=== PATIENT | male | born 1945 | race Caucasian/White ===

== ENCOUNTER → 2019-12-19 08:02 | Outpatient (CLI) | payer MEDICARE, SELFPAY ==
--- NOTE | 2019-12-19 08:06 | CT_ITS ---
PROCEDURE: CT LUNG SCREENING CLINICAL INDICATION: H/O TOBACCO USE 35+ pack-year smoking history, asymptomatic for lung cancer COMPARISON: No exams were available for comparison TECHNIQUE: The exam was performed on a GE Light Speed [address] scanner using 2.90 mGy CTDI. A low dose helical CT CHEST was performed on a multi-detector scanner. All CT scans at the facility use one or more dose reduction, viz: automated exposure control, ma/kV adjustment per patient size (including targeted exams where dose is matched to indication, i.e. head), or iterative reconstruction technique. The LDCT was performed in a facility that meets the criteria for the screening program. Data regarding this exam was submitted to ACR which is an approved registry. The order for this exam indicates that it came as a result of a lung cancer screening counseling shard decision-making visit that included all the elements required of such a visit including smoking cessation. The radiologist interpreting this exam meets the [facility] criteria for the LDCT lung cancer screening program. The exam is reported using the Lung-RADS classification scale and reported to the ACR registry. NOTE: This study was performed for the specific purposes of lung cancer screening and is not an alternative to diagnostic chest CT. RADIATION DOSE: CTDI vol(CT dose Index-volume) = 2.90mG DLP (Dose Length Product) = 96.64 mGcm Lung Rads Category: FINDINGS: COPD changes. There are scattered small nodular opacities in both lungs. Most of these are calcified. A noncalcified subpleural nodule is present in the right middle lobe anterior laterally at 6 mm. OTHER FINDINGS: Nonspecific coarse calcification noted in the spleen. Coronary artery calcifications and/or stents noted. Mild gynecomastia IMPRESSION: Lung rads category 3 probably benign regarding 6 mm nodule in the right middle lobe. Recommend six-month diagnostic CT follow-up with contrast Dictated by: Kole Maravilla MD 12/31/2019 10:51 Electronically signed by Kole Maravilla MD in [place] 12/31/2019 10:51
== END ==
PROVIDERS: PCP Internal Medicine Adolescent Medicine; Visit Provider Internal Medicine Adolescent Medicine
DX: Z87.891 Personal history of nicotine dependence (principal); Z12.2 Encounter for screening for malignant neoplasm of respiratory organs

== ENCOUNTER → 2019-12-25 07:55 | Outpatient (CLI) | payer MEDICARE, SELFPAY ==
--- NOTE | 2019-12-25 07:55 | CA_ITS ---
APPROVED REPORT EXAM: Comprehensive 2D, Doppler, and color-flow Echocardiogram Burglar Alarm Inspector: Sharon Dinh RDCS Ht: 5 ft 8 in Wt: 175lbs BSA: 1.93 BP: 163/48 mmHg Indications: CAD, HTN, HLP, PAD 2D Dimensions LVOT 1.59 cm (M/F) 1.5-2.5 M-Mode Dimensions RVDd 2.26 cm (0.9-2.6) LVDd 4.99 cm (3.5-5.7) LVDs 3.52 cm (3.5-5.7) IVSd 1.29 cm (0.6-1.1) PWd 1.18 cm (0.6-1.1) EF (Teich) 56.20% FS 29.50% EDV (Teich) 117.70 mL ESV (Teich) 51.60 mL LV Diastology E/A Ratio 1.05 Aortic Valve LVOT Max 148.00 (70-110 cm/s) LVOT VTI 39.55 cm Mitral Valve MV A Velocity 82.00 (40-130 cm/s) Left Ventricle Left atrium is mildly enlarged, left ventricle is normal size, mild concentric left ventricular hypertrophy, visually estimated ejection fraction 55% with no regional wall motion abnormality. Grade 1 diastolic dysfunction seen with tissue Doppler evidence of raise left atrial pressure. Right Ventricle Right atrium and right ventricular mildly enlarged with normal contractility. Aortic Valve Aortic valve is minimally thickened and fibrosed, there is no aortic stenosis, there is mild aortic insufficiency. Tricuspid Valve Tricuspid valve is grossly normal, there is mild tricuspid regurgitation, calculated right ventricular systolic pressure is 52 mmHg. Pulmonic Valve Pulmonic valve is poorly visualized. Great Vessels Aortic root is normal size. Pericardium No significant pericardial effusion noted. Conclusion 1. Mild biatrial enlargement, normal left ventricular size, mild concentric left ventricular hypertrophy, visually estimated ejection fraction 55% with no regional wall motion abnormality, grade 1 diastolic dysfunction seen with tissue Doppler evidence of raise left atrial pressure. 2. Mildly enlarged right ventricle with normal contractility. 3. Mild aortic, mild mitral and tricuspid regurgitation, calculated right ventricular systolic pressure is 52 mmHg. 4. No significant pericardial effusion noted. Electronically signed by : Josue Sue, 12/25/2019 12:10:23
--- NOTE | 2019-12-25 07:55 | CA_ITS ---
APPROVED REPORT Bindery Supervisor: KIRK Laterality: Bilateral Study Quality: Excellent Indications: bruit Doppler Spectral Velocity Analysis dICA (R) 123.80/24.80 cm/s dICA (L) 117.60/25.60 cm/s Aj (R) 97.30/16.80 cm/s Aj (L) 116.10/25.50 cm/s pICA (R) 137.90/26.20 cm/s pICA (L) 131.00/26.00 cm/s dCCA (R) 120.00/22.60 cm/s dCCA (L) 202.70/33.20 cm/s pCCA (R) 118.90/17.40 cm/s pCCA (L) 133.80/17.80 cm/s Vert (R) 93.70/16.00 cm/s Vert (L) 38.00/12.50 cm/s ICA/CCA 1.20 ICA/CCA 0.70 Conclusion Duplex evaluation demonstrates stenosis of the right proximal internal carotid artery <20% with PSV <140 cm/sec, EDV <100 cm/sec, and IC/CC Ratio <4.0. Duplex evaluation demonstrates stenosis of the left proximal internal carotid artery <20% with PSV <140 cm/sec, EDV <100 cm/sec, and IC/CC Ratio <4.0. Antegrade flow seen bilateral vertebral arteries. Electronically signed by : Kole Maravilla MD 12/26/2019 16:40:11
== END ==
PROVIDERS: PCP Internal Medicine Adolescent Medicine; Visit Provider Internal Medicine Cardiovascular Disease
DX: E78.5 Hyperlipidemia, unspecified (principal); I10 Essential (primary) hypertension; I25.10 Atherosclerotic heart disease of native coronary artery without angina pectoris; I73.9 Peripheral vascular disease, unspecified; I77.9 Disorder of arteries and arterioles, unspecified; R09.89 Other specified symptoms and signs involving the circulatory and respiratory systems
CPT/HCPCS: 93306; 93880

== ENCOUNTER → 2020-04-13 08:07 | Outpatient (CLI) | payer MEDICARE, SELFPAY ==
[2020-04-13 08:45] LABS: Basophils % 0.3 % (0.1-2.0); Eosinophils # 0.3 K/mm3 (0.0-0.4); Eosinophils % 3.1 % (0.1-12.0); Hematocrit 43.5 % (42.0-52.0); Hemoglobin 14.5 g/dL (14.1-18.0); Lymphocytes # 1.7 K/mm3 (0.7-4.5); Lymphocytes % 17.8 % (10-50); Mean Corpuscular HGB Conc 33.4 g/dL (31.8-35.4); Mean Corpuscular Hemoglobin 30.6 pg (27.0-31.2); Mean Corpuscular Volume 91.8 fl (80-94); Mean Platelet Volume 9.3 fl (7.4-10.4); Monocytes # 0.6 K/mm3 (0.1-1.0); Monocytes % 5.8 % (1.7-9.3); Platelet Count 247 K/mm3 (142-424); Red Blood Count 4.74 M/mm3 (4.60-6.20); Red Cell Distribution Width 13.8 % (11.5-17.5); White Blood Count 9.6 K/mm3 (4.8-10.8)
[2020-04-13 12:30] LABS: Chloride 108 mmol/L (98-107); Potassium 4.8 mmoL/L (3.5-5.1); Sodium 141 mmol/L (136-145)
[2020-04-13 12:32] LABS: Alanine Aminotransferase 22 U/L (12-78); Albumin Level 3.8 g/dl (3.5-5.0); Albumin/Globulin Ratio 1.5 (1.1-1.8); Alkaline Phosphatase 71 U/L (38-126); Anion Gap 12.8 mEq/L (5-15); Aspartate Amino Transferase 28 U/L (17-59); Bilirubin,Total 0.4 mg/dl (0.2-1.3); Blood Urea Nitrogen 20 mg/dl (9-20); Carbon Dioxide 25 mmol/L (22.0-30.0); Estimated Glomerular Filt Rate 73 ml/min (>60); GFR (African American) 88 ML/MIN (>60); Globulin 2.5 g/dL (1.3-3.2); Total Protein,Serum 6.3 g/dl (6.3-8.2)
[2020-04-13 12:33] LABS: Calcium 9.1 mg/dl (8.4-10.2); Chol/HDL Ratio 3.3 (1-3.5); Cholesterol 117 mg/dl (140-200); Glucose 110 mg/dl (74-100); HDL Cholesterol 36 mg/dl (40-60); Triglycerides 102 mg/dl (30-150); VLDL Cholesterol 20 mg/dL (0-40)
[2020-04-13 12:44] LABS: Direct LDL Cholesterol 66.53 mg/dL (100-129)
== END ==
PROVIDERS: Visit Provider Internal Medicine Adolescent Medicine
DX: I25.10 Atherosclerotic heart disease of native coronary artery without angina pectoris (principal)
CPT/HCPCS: 36415; 80053; 80061; 85025

== ENCOUNTER → 2020-07-29 13:35 | Outpatient (CLI) | payer MEDICARE, SELFPAY ==
--- NOTE | 2020-07-29 13:48 | CT_ITS ---
PROCEDURE: CT CHEST W CON CLINCAL INDICATION: lung nodule, follow up 75ml iso 370 ldls, 12/19/19 COMPARISON: CT CT LUNG SCREENING from 12/19/2019 TECHNIQUE: IV Contrast: 75ml Isovue 370 Axial images obtained with sagittal and coronal reformats. All CT scans at the facility use one or more dose reduction, viz: automated exposure control, ma/kV adjustment per patient size (including targeted exams where dose is matched to indication, i.e. head), or iterative reconstruction technique. FINDINGS: HEART AND MEDIASTINAL STRUCTURES: No mediastinal or hilar mass or adenopathy. Atheromatous changes are present involving the aorta with scattered soft plaque in the aortic arch and descending thoracic aorta with some ulceration noted. LUNGS AND PLEURAL SPACES: 4 mm noncalcified nodule right upper lobe unchanged. COPD. Five mm subpleural nodule right middle lobe unchanged. There are small nodular opacities in the right lower lobe posteriorly which are unchanged. Calcified granuloma right lower lobe. Small fissural nodule inferiorly on the right at 4 mm unchanged calcified granuloma left upper lobe. There is some minimal nodularity in the major fissure on the left. There are 2 nodular opacities in the left lung base laterally at 3 mm each unchanged. No new suspicious nodules are evident. BONY STRUCTURES: There are degenerative changes in the thoracic spine. UPPER ABDOMEN: There is a 3.8 cm hypodense lesion in the spleen posteriorly with central coarse calcifications. ADDITIONAL FINDINGS: Gynecomastia IMPRESSION: 1. Stable CT appearance of the chest with no change in the small bilateral pulmonary nodules. Suggest annual follow-up with LD CT 2. 4 cm splenic lesion with central calcification. This could be due to a prior splenic hemorrhage or hemangioma with central calcification. Consider six-month CT follow-up without and with contrast for confirmation of stability Dictated by: Kole Maravilla MD 07/30/2020 11:48 Kole Maravilla MD in [place] 07/30/2020 11:48
[2020-07-29 14:06] LABS: Blood Urea Nitrogen 28 mg/dl (9-20); Estimated Glomerular Filt Rate 50 ml/min (>60); GFR (African American) 60 ML/MIN (>60)
== END ==
PROVIDERS: PCP Internal Medicine Adolescent Medicine; Visit Provider Internal Medicine Adolescent Medicine
DX: R91.1 Solitary pulmonary nodule (principal)
CPT/HCPCS: 36415; 71260; 82565; 84520; Q9967

== ENCOUNTER → 2020-10-12 08:26 | Outpatient (CLI) | payer MEDICARE, SELFPAY ==
[2020-10-12 09:10] LABS: Blood Urea Nitrogen 17 mg/dl (9-20); Estimated Glomerular Filt Rate 65 ml/min (>60); GFR (African American) 79 ML/MIN (>60)
== END ==
PROVIDERS: Visit Provider Internal Medicine Adolescent Medicine
DX: D73.89 Other diseases of spleen (principal)
CPT/HCPCS: 36415; 82565; 84520

== ENCOUNTER → 2020-10-18 10:03 | Outpatient (CLI) | payer MEDICARE, SELFPAY ==
--- NOTE | 2020-10-18 10:08 | CT_ITS ---
PROCEDURE: CT ABDOMEN PELVIS W CON CLINICAL INDICATION: SPLENIC LESION COMPARISON: CT CT LUNG SCREENING from 12/19/[address] CHEST W CON from 07/29/2020 TECHNIQUE: IV Contrast: 75ML Isovue 370 Oral Contrast None Axial images obtained with sagittal and coronal reformats. All CT scans at the facility use one or more dose reduction, viz: automated exposure control, ma/kV adjustment per patient size (including targeted exams where dose is matched to indication, i.e. head), or iterative reconstruction technique. FINDINGS: LOWER THORAX: Minor bibasal atelectasis is noted. There is minor tree-in-bud appearance noted in the right lower lobe, may represent changes secondary to minor infection/inflammation. Calcified granuloma in the right lower lobe. Trace pericardial effusion. ABDOMEN & PELVIS: Focal hypodense lesion is noted in the segment 5/6 of the liver measuring approximately 1.2 centimeters. No other focal liver lesions are noted. The gallbladder is surgically absent. No intra or extrahepatic biliary dilation. The CBD is normal. Focal hypodense lesion in the spleen is again noted measuring 3.6 times 2.7 centimeters, demonstrates calcification. This demonstrates no significant interval change compared to prior study of July 29, 2020. No other focal splenic lesions are noted. On the delayed phase images, no evidence of internal enhancement is noted. Focal hypodense lesion is noted in the right kidney measuring 2.2 centimeters. Otherwise the adrenal glands, kidneys and pancreas are unremarkable. Moderate fecal retention of the large bowel is noted. No focal distension, adjacent inflammatory changes are focal wall thickening. Few colonic diverticula are noted without evidence of diverticulitis. The appendix is normal. Extensive atherosclerotic vascular calcification of the abdominal aorta and its branches. Right renal artery stent is noted. No significant mesenteric or retroperitoneal adenopathy. IMPRESSION: Focal hypodense lesion in the spleen measuring 3.6 x 2.7 centimeters, demonstrates internal calcification. There is no significant interval change compared to prior study. The differential diagnosis would include prior hematoma, sequela of prior trauma hemangioma and lymphangiomas. Focal hypodense lesion in the segment 5/6 of the liver measuring 1.2 centimeters. This is incompletely characterized on the current study. The differential diagnosis would include hemangioma, cysts but neoplastic process cannot be completely excluded. MRI of the liver without and with contrast should be considered for further evaluation. Colonic diverticula without evidence of diverticulitis. Extensive atherosclerotic vascular calcification. Dictated by: Monique Myles 10/18/2020 12:07 Monique Myles in [place] 10/18/2020 12:07
== END ==
PROVIDERS: PCP Internal Medicine Adolescent Medicine; Visit Provider Internal Medicine Adolescent Medicine
DX: D73.89 Other diseases of spleen (principal)
CPT/HCPCS: 74177; Q9967

== ENCOUNTER → 2020-10-21 07:43 | Outpatient (CLI) | payer MEDICARE, SELFPAY ==
--- NOTE | 2020-10-21 07:44 | CA_ITS ---
APPROVED REPORT Mop Machine Operator: Emily Delarosa RVT Laterality: Bilateral Study Quality: Good Indications: PAD Risk Factors History of Lower Extremity PAD: Hypertension Hyperlipidemia Smoking Surgery/Intervention Stent : prior aortic bypass VELOCITY AND DOPPLER WAVEFORM ANALYSIS RIGHT cm/sec Waveform Severity ROBOTICS TECHNICIAN 189.3/ Monophasic Mild < 50% PFA 46.2/ Monophasic Mild Plaque Prox SFA 25.8/ Monophasic Mild Plaque Mid SFA 23.1/ Monophasic Mild Plaque Dis SFA 8.5/ Monophasic Mild Plaque POP 28.5/ Monophasic Post Tibial 32.4/ Monophasic Ant Tib/Dors Ped 13.7/ Monophasic Peroneal 31.4/ Monophasic LEFT cm/sec Waveform Severity ROBOTICS TECHNICIAN 113.7/ Biphasic PFA 156.0/ Biphasic Mild < 50% Prox SFA 105.3/ Biphasic Mild Plaque Mid SFA 55.9/ Biphasic Mild Plaque Dis SFA 80.9/ Biphasic Mild Plaque POP 35.1/ Biphasic Post Tibial 47.8/ Biphasic Ant Tib/Dors Ped 45.3/ Biphasic Peroneal 44.8/ Biphasic Findings Study suggests less than 50% stenosis of the right ROBOTICS TECHNICIAN and the left profunda. There is mild plaque seen in the bilateral femoral arteries. Conclusion Study suggests less than 50% stenosis of the right ROBOTICS TECHNICIAN and the left profunda. There is mild plaque seen in the bilateral femoral arteries. Electronically signed by : Monique Myles, 10/21/2020 15:15:23
--- NOTE | 2020-10-21 07:44 | CA_ITS ---
APPROVED REPORT Applications Scientist: Emily Delarosa RVT Study Quality: Good Indications: HTN Risk Factors PAD Hypertension Hyperlipidemia Smoking Surgery/Intervention Renal Artery Stent : right Renal Artery Doppler Proximal (R) 248.6/ cm/sec Mid (R) 303.4/ cm/sec Distal (R) 186.4/ cm/sec Renal Aorta Ratio (R) 3.22 Segmental A. (R) 37.2/8.5 cm/sec RI: 0.77 Segmental A. Sup (R) 34.9/6.2 cm/sec Segmental A. Mid (R) 37.2/8.5 cm/sec Segmental A. Inf (R) 34.9/11.6 cm/sec Origin (L) 273.7/ cm/sec Proximal (L) 265.2/ cm/sec Mid (L) 203.7/ cm/sec Distal (L) 192.5/ cm/sec Renal Aorta Ratio (L) 2.91 Segmental A. (L) 65.2/17.7 cm/sec RI: 0.72 Segmental A. Sup (L) 58.4/13.6 cm/sec Segmental A. Mid (L) 65.2/17.7 cm/sec Segmental A. Inf (L) 31.3/12.2 cm/sec Renal Measurements Kidney Size (R) 9.6x6.6 cm Cortical Thickness (R) 1.5 cm Kidney Size (L) 13.2x8.6 cm Cortical Thickness (L) 2.0 cm Findings Study suggests greater than 60% stenosis of the bilateral renal arteries. 2.6 X 2.4cm cyst seen lower pole of right kidney. Conclusion Study suggests greater than 60% stenosis of the bilateral renal arteries. 2.6 X 2.4cm cyst seen lower pole of right kidney. Electronically signed by : Monique Myles, 10/21/2020 15:20:36
--- NOTE | 2020-10-21 07:44 | CA_ITS ---
APPROVED REPORT Mining Teacher: Emily Delarosa RVT Laterality: Bilateral Study Quality: Good Indications: ERIN Risk Factors Hypertension: Hyperlipidemia Smoking Doppler Spectral Velocity Analysis ECA (R) 257.70/18.10 cm/s ECA (L) 182.20/11.80 cm/s dICA (R) 108.20/30.60 cm/s dICA (L) 109.80/28.90 cm/s Aj (R) 110.50/23.50 cm/s Aj (L) 116.40/31.70 cm/s pICA (R) 104.50/20.90 cm/s pICA (L) 142.30/34.10 cm/s dCCA (R) 66.60/15.70 cm/s dCCA (L) 123.30/30.80 cm/s pCCA (R) 61.40/12.70 cm/s pCCA (L) 90.50/22.20 cm/s Vert (R) 80.00/16.50 cm/s Vert (L) 41.20/13.50 cm/s ICA/CCA 1.66 ICA/CCA 1.15 Findings Study suggests less than 20% stenosis of the right internal cartoid artery.Non calcified plaques are noted at the bilateral carotid bulbs. Study suggests 20-49% stenosis of the left internal cartoid artery. Antegrade flow seen bilateral vertebral arteries. Conclusion Non calcified plaques noted at bilateral carotid bulbs. Study suggests less than 20% stenosis of the right internal cartoid artery. Study suggests 20-49% stenosis of the left internal cartoid artery. Antegrade flow seen bilateral vertebral arteries. Electronically signed by : Monique Myles, 10/21/2020 15:19:18
== END ==
PROVIDERS: PCP Internal Medicine Adolescent Medicine; Visit Provider Internal Medicine Cardiovascular Disease
DX: E78.2 Mixed hyperlipidemia (principal); I10 Essential (primary) hypertension; I25.10 Atherosclerotic heart disease of native coronary artery without angina pectoris; I65.23 Occlusion and stenosis of bilateral carotid arteries; I73.9 Peripheral vascular disease, unspecified; I77.9 Disorder of arteries and arterioles, unspecified
CPT/HCPCS: 93880; 93925; 93976

== ENCOUNTER → 2020-11-01 11:54 | Outpatient (CLI) | payer MEDICARE, SELFPAY ==
[2020-11-01 13:02] LABS: Basophils # 0.1 K/mm3 (0-0.2); Basophils % 0.5 % (0.1-2.0); Eosinophils # 0.2 K/mm3 (0.0-0.4); Eosinophils % 1.9 % (0.1-12.0); Hematocrit 44.3 % (42.0-52.0); Hemoglobin 14.7 g/dL (14.1-18.0); Lymphocytes # 1.7 K/mm3 (0.7-4.5); Lymphocytes % 15.9 % (10-50); Mean Corpuscular HGB Conc 33.2 g/dL (31.8-35.4); Mean Corpuscular Hemoglobin 29.5 pg (27.0-31.2); Mean Corpuscular Volume 88.8 fl (80-94); Mean Platelet Volume 9.3 fl (7.4-10.4); Monocytes # 0.5 K/mm3 (0.1-1.0); Monocytes % 4.7 % (1.7-9.3); Platelet Count 249 K/mm3 (142-424); Red Blood Count 4.99 M/mm3 (4.60-6.20); Red Cell Distribution Width 13.9 % (11.5-17.5); White Blood Count 10.4 K/mm3 (4.8-10.8)
[2020-11-01 13:29] LABS: Chloride 105 mmol/L (98-107); Sodium 139 mmol/L (136-145)
[2020-11-01 13:30] LABS: Potassium 4.2 mmoL/L (3.5-5.1)
[2020-11-01 13:33] LABS: Anion Gap 11.2 mEq/L (5-15); Blood Urea Nitrogen 25 mg/dl (9-20); Calcium 9.8 mg/dl (8.4-10.2); Carbon Dioxide 27 mmol/L (22.0-30.0); Estimated Glomerular Filt Rate 59 ml/min (>60); GFR (African American) 72 ML/MIN (>60); Glucose 108 mg/dl (74-100)
== END ==
PROVIDERS: PCP Internal Medicine Adolescent Medicine; Visit Provider Urology
DX: E78.5 Hyperlipidemia, unspecified (principal); I10 Essential (primary) hypertension; I25.10 Atherosclerotic heart disease of native coronary artery without angina pectoris; I70.1 Atherosclerosis of renal artery; I73.9 Peripheral vascular disease, unspecified; I77.9 Disorder of arteries and arterioles, unspecified; Z01.818 Encounter for other preprocedural examination; Z11.52 Encounter for screening for COVID-19
CPT/HCPCS: 36415; 80048; 85025; U0003

== ENCOUNTER 2020-11-02 08:47 | Day surgery (SDC) | payer MEDICARE, SELFPAY ==
[2020-11-02] VITALS (15 sets, daily range): BP systolic 145–175; BP diastolic 63–78; PULSE 51–80; RESP 12–20; O2SAT 93–99; BMI 27.0
--- NOTE | 2020-11-02 07:18 | IR_ITS ---
APPROVED REPORT Patient Location: Outpatient PROCEDURES Right femoral arterial access Catheter placed in the abdominal aorta Abdominal aortography Repositioning of the catheter in the abdominal aorta Bilateral iliofemoral runoff Bilateral selective renal angiogram INDICATION Known peripheral artery disease, Fiona claudication class III, History of aortobifem surgery, Known renal artery stenosis Informed consent was obtained prior to the procedure. COMPLICATIONS None Estimated Blood Loss: Less than 10 ml TECHNIQUE 1% lidocaine used anesthetize right groin the right femoral artery was accessed via the Salinger technique and a 4 Portuguese sheath was placed in the right femoral artery. Pigtail catheter was advanced into the distal abdominal aorta or distal abdominal aortography was performed. The catheter was then repositioned and bilateral iliofemoral runoff was performed. The JR4 catheter was used to cannulate each renal artery and perform angiography at the end of the procedure the patient transferred to postop holding her stable condition for sheath removal ANGIOGRAPHIC RESULTS The left renal artery singular and has an ostial proximal smooth 20% stenosis The right renal artery singular and has a stent in the ostial proximal segment which has 30% concentric in-stent restenosis. The distal abdominal aorta is occluded Both limbs of the aortobifem graft are widely patent and make their anastomosis into the bilateral femoral arteries with wide patency. The bilateral profunda femoris arteries are normal. The bilateral superficial femoral arteries are proximally subtotally occluded and reconstituted Isael's canal via collaterals from the profunda femoris. Both popliteal arteries are patent and provide three-vessel runoff below the knee in a slow fashion IMPRESSION Peripheral artery disease as described above Patent aortobifem graft Subtotal occlusion throughout the bilateral superficial femoral arteries with good profunda femoris collateralization Mild to moderate renal artery stenosis as described above PLAN 1. I strongly advocate for medical management. Patient needs to get on an exercise program which will improve the collateral formation through the profunda femoris. In this patient has limb threatening ischemia or poorly healing ulcers I would avoid revascularizing the SFAs at all cost. Revascularizing the SFAs would be temporary and would almost certainly restenosis reocclude. Patient would have a much better short and long-term outcome with exercise program to improve collateralization 2. LDL less than 55 3. Evaluation of ischemic heart disease 4. Xarelto 2.5 twice daily plus aspirin 81 mg daily Electronically signed by : Roman Ortega, 11/09/2020 11:08:42
== END 2020-11-02 14:01 | disposition home or self-care (01) ==
PROVIDERS: PCP Internal Medicine Adolescent Medicine; Visit Provider Internal Medicine
DX: E78.5 Hyperlipidemia, unspecified (principal); I10 Essential (primary) hypertension; I25.10 Atherosclerotic heart disease of native coronary artery without angina pectoris; I70.1 Atherosclerosis of renal artery; I70.213 Atherosclerosis of native arteries of extremities with intermittent claudication, bilateral legs; I77.9 Disorder of arteries and arterioles, unspecified; T82.858A Stenosis of other vascular prosthetic devices, implants and grafts, initial encounter; Z79.899 Other long term (current) drug therapy
CPT/HCPCS: 36247; 36252; 75716; 99152; 99153; C1725; C1769; J1644; Q9967

== ENCOUNTER → 2021-11-07 14:06 | Outpatient (CLI) | payer MEDICARE, SELFPAY ==
--- NOTE | 2021-11-07 14:07 | CA_ITS ---
FINAL REPORT TECHNIQUE: Color Doppler, duplex Doppler and milner scale sonography of the bilateral neck arterial vasculature was performed. Velocities were measured in the carotid arteries. Stenosis evaluation based on the validated velocity criteria. CLINICAL HISTORY: ERIN, HTN, hyperlipidemia FINDINGS: The peak systolic velocity of the right common carotid artery is 70 cm/s. The peak systolic velocity of the right internal carotid artery is 114 cm/s and end diastolic velocity 20 cm/s. The ICA/CCA ratio is 1.6. A mild amount of plaque is present. The right external carotid artery is patent. The right vertebral artery is patent with antegrade flow. The peak systolic velocity of the left common carotid artery is 121 cm/s. The peak systolic velocity of the left internal carotid artery is 203 cm/s and end diastolic velocity 27 cm/s. The ICA/CCA ratio is 1.7. A mild amount of plaque is present. The left external carotid artery is patent.The left vertebral artery is patent with antegrade flow. IMPRESSION: Less than 50% right carotid stenosis. 50-69% left carotid stenosis. Bilateral patent vertebral arteries with antegrade flow. If indicated, CTA or MRA could further evaluate. Reviewed, Interpreted and Dictated by Raymond Barrera III, MD Transcribed by Neha Ramires Authenticated by Raymond Barrera III, MD on 11/07/2021 03:18:16 PM [facility]
== END ==
PROVIDERS: PCP Internal Medicine Adolescent Medicine; Visit Provider Internal Medicine Cardiovascular Disease
DX: I65.23 Occlusion and stenosis of bilateral carotid arteries
CPT/HCPCS: 93880

== ENCOUNTER → 2021-11-15 15:51 | Outpatient (CLI) | payer MEDICARE, SELFPAY ==
[2021-11-15 16:57] LABS: Blood Urea Nitrogen 32 mg/dl (9-20); Estimated Glomerular Filt Rate 49 ml/min (>60); GFR (African American) 60 ML/MIN (>60)
== END ==
PROVIDERS: Internal Medicine; PCP Internal Medicine Adolescent Medicine
DX: Z01.812 Encounter for preprocedural laboratory examination (principal)
CPT/HCPCS: 36415; 82565; 84520

== ENCOUNTER → 2021-11-16 13:03 | Outpatient (CLI) | payer MEDICARE, SELFPAY ==
--- NOTE | 2021-11-16 13:03 | CT_ITS ---
FINAL REPORT CLINICAL HISTORY: worsening ERIN FINDINGS: Thin section axial CT with IV contrast supplemented with multiplanar reconstruction under CT angiogram protocol. This study was performed with techniques to keep radiation doses as low as reasonably achievable (ALARA). Individualized dose reduction techniques using automated exposure control or adjustment of mA and/or kV according to the patient''s size were employed. NASCET criteria was utilized during interpretation. There are extensive facet hypertrophic changes throughout the cervical spine. Aortic arch: Arch shows no significant narrowing. Great vessel origins are widely patent. Right carotid: There is 50% stenosis at the origin of the right carotid on image 43 of series 601. Left carotid: There is 60% stenosis at the origin of the left carotid with associated calcification. Vertebral: Left vertebral artery is dominant. No significant stenosis is present. IMPRESSION: 50% right carotid stenosis. 60% left carotid stenosis with associated calcification. Reviewed, Interpreted and Dictated by Celio Huang MD Transcribed by Riccardo Santiago Authenticated by Celio Huang MD on 11/16/2021 06:03:58 PM [facility]
== END ==
PROVIDERS: PCP Internal Medicine Adolescent Medicine; Visit Provider Physician Assistant
DX: I77.9 Disorder of arteries and arterioles, unspecified (principal); I65.23 Occlusion and stenosis of bilateral carotid arteries
CPT/HCPCS: 70498; Q9967

== ENCOUNTER → 2022-06-02 10:06 | Outpatient (CLI) | payer MEDICARE, SELFPAY | PROVIDERS: PCP Internal Medicine Adolescent Medicine; Visit Provider Internal Medicine Cardiovascular Disease | DX: R00.0 Tachycardia, unspecified (principal); R00.1 Bradycardia, unspecified; R00.2 Palpitations; R61 Generalized hyperhidrosis | CPT/HCPCS: 93270 ==

== ENCOUNTER → 2022-09-29 09:17 | Outpatient (CLI) | payer MEDICARE, SELFPAY ==
--- NOTE | 2022-09-29 09:23 | CT_ITS ---
FINAL REPORT TECHNIQUE: Axial CT images of the chest were obtained without contrast. Low-dose protocol was utilized. This study was performed with techniques to keep radiation doses as low as reasonably achievable (ALARA). Individualized dose reduction techniques using automated exposure control or adjustment of mA and/or kV according to the patient's size were employed. CLINICAL HISTORY: H/O TOBACCO USE, quit 25 yrs ago, smoked 1 pk per day for 35 years COMPARISON: CT chest 07/29/2020, CT low-dose 12/19/2019 FINDINGS: CT CHEST WITHOUT, LOW DOSE SCREENING CT Di Vol: 2.90 mGy DLP: 111.25 mGy*cm There is no mediastinal or hilar mass. No axillary mass or adenopathy. The heart size is normal. There is no pleural or pericardial effusion. The lung windows show a 6 mm anterior right lower lobe nodule, was 3 mm. There is a 6 mm lateral right middle lobe nodule which is stable. There are multiple other small bilateral pulmonary nodules, some stable and some larger. Limited images of the upper abdomen demonstrate prior cholecystectomy. There is a stable splenic calcification. IMPRESSION: Right lower lobe nodule increased from prior. LR Category 4A: 3 month follow-up low-dose chest CT is recommended. Reviewed, Interpreted and Dictated by Raymond Barrera III, MD Transcribed by Mariana Voss Authenticated and [facility]
== END ==
PROVIDERS: PCP Internal Medicine Adolescent Medicine; Visit Provider Internal Medicine Adolescent Medicine
DX: Z87.891 Personal history of nicotine dependence (principal); Z12.2 Encounter for screening for malignant neoplasm of respiratory organs
CPT/HCPCS: 71271

== ENCOUNTER → 2023-01-04 12:30 | Outpatient (CLI) | payer MEDICARE, SELFPAY ==
--- NOTE | 2023-01-04 12:36 | CT_ITS ---
FINAL REPORT TECHNIQUE: Multi planar MR imaging of the chest was performed with and without contrast. Sagittal and coronal reformatted images were obtained and reviewed. This study was performed with techniques to keep radiation doses as low as reasonably achievable (ALARA). Individualized dose reduction techniques using automated exposure control or adjustment of mA and/or kV according to the patient's size were employed. CLINICAL HISTORY: LUNG NODULE COMPARISON: 09/29/2022 FINDINGS: There is no evidence of mediastinal mass or adenopathy. No axillary mass is identified. There is no pleural or pericardial effusion. Multiple bilateral pulmonary nodules are again identified. There is a nodule in the anterior right lower lobe adjacent to the major fissure measuring 6 mm, previously measured 6 mm. Multiple other smaller nodules are identified, right greater than left are stable in size and appearance. No new mass or nodule is identified. Limited images of the upper abdomen reveal a partially calcified splenic mass measuring 35 mm which is nonspecific but favor benign. The patient is status post cholecystectomy. IMPRESSION: Multiple bilateral pulmonary nodules, stable in size and appearance. Recommend additional follow-up CT in 6 months. Reviewed, Interpreted and Dictated by Raymond Barrera III, MD Transcribed by Susan Valverde Authenticated and [facility]
== END ==
PROVIDERS: PCP Internal Medicine Adolescent Medicine; Visit Provider Internal Medicine Adolescent Medicine
DX: R91.1 Solitary pulmonary nodule (principal)
CPT/HCPCS: 71270; Q9967

== ENCOUNTER → 2023-05-14 12:51 | Outpatient (CLI) | payer MEDICARE, SELFPAY ==
[2023-05-14 14:03] LABS: Chloride 106 mmol/L (98-107); Sodium 138 mmol/L (136-145)
[2023-05-14 14:05] LABS: Alanine Aminotransferase 21 U/L (12-78); Aspartate Amino Transferase 30 U/L (17-59); Bilirubin,Total 0.5 mg/dl (0.2-1.3); Blood Urea Nitrogen 27 mg/dl (9-20); Estimated Glomerular Filt Rate 54 ml/min (>60); GFR (African American) 65 ML/MIN (>60)
[2023-05-14 14:06] LABS: Albumin Level 4.2 g/dl (3.5-5.0); Albumin/Globulin Ratio 1.6 (1.1-1.8); Alkaline Phosphatase 90 U/L (38-126); Anion Gap 13.5 mEq/L (5-15); Calcium 8.9 mg/dl (8.4-10.2); Carbon Dioxide 23 mmol/L (22.0-30.0); Chol/HDL Ratio 3.9 (1-3.5); Cholesterol 110 mg/dl (140-200); Globulin 2.7 g/dL (1.3-3.2); Glucose 100 mg/dl (74-100); HDL Cholesterol 28 mg/dl (40-60); Potassium 4.5 mmoL/L (3.5-5.1); Total Protein,Serum 6.9 g/dl (6.3-8.2); Triglycerides 105 mg/dl (30-150); VLDL Cholesterol 21 mg/dL (0-40)
== END ==
PROVIDERS: PCP Internal Medicine Adolescent Medicine; Visit Provider Internal Medicine Adolescent Medicine
DX: I25.10 Atherosclerotic heart disease of native coronary artery without angina pectoris (principal); N18.31 Chronic kidney disease, stage 3a; I12.9 Hypertensive chronic kidney disease with stage 1 through stage 4 chronic kidney disease, or unspecified chronic kidney disease
CPT/HCPCS: 36415; 80053; 80061

== ENCOUNTER 2023-09-18 08:05 | Outpatient (CLI) | payer MEDICARE, SELFPAY ==
--- NOTE | 2023-09-18 | CA_ITS ---
FINAL REPORT TECHNIQUE: Grayscale, color Doppler and duplex Doppler ultrasound of the kidneys, aorta and renal arteries was performed. Multiple velocities were measured. CLINICAL HISTORY: Hx- stented/bypass of abdominal aorta, Left renal artery stent, right renal cyst2.6x2.4cm10/2020, s/p radiation treatments for prostate cancer, PAD COMPARISON: None FINDINGS: Aorta velocity: 83.4 cm/sec Right kidney: 10.5 cm. There is a 2.8 cm in greatest diameter right renal cyst present. Right intrarenal RI: 0.8 Right renal artery velocity: 244 cm/sec. Right RAR (Renal artery-Aortic Ratio): 2.9 Left Kidney: 10.9 cm. No evidence of hydronephrosis or mass. Left intrarenal RI: 0.83 Left renal artery velocity: 356 cm/sec. Left RAR (Renal Artery-Aortic Ratio): 4.3 IMPRESSION: There is greater than 60% renal artery stenosis in the left renal artery. There is less than 60% renal artery stenosis present in the right renal artery. CT angiogram or postcontrast MR angiogram would be more sensitive for evaluation of possible renal artery stenosis. Reviewed, Interpreted and Dictated by Gretchen Daley MD Transcribed by Dina Walker Authenticated and [facility]
== END 2023-09-18 23:59 ==
PROVIDERS: PCP Internal Medicine Adolescent Medicine; Visit Provider Internal Medicine Nephrology
DX: I70.1 Atherosclerosis of renal artery (principal)
CPT/HCPCS: 93976

== ENCOUNTER 2023-12-20 07:26 | Outpatient (CLI) | payer MEDICARE, SELFPAY ==
[2023-12-20 07:35] LABS: Microscopic, Urine URINE MICROSCOPIC (MICROSCOPIC)
[2023-12-20 08:04] LABS: Hematocrit 44.5 % (42.0-52.0); Hemoglobin 14.5 g/dL (14.1-18.0); Mean Corpuscular HGB Conc 32.5 g/dL (31.8-35.4); Mean Corpuscular Hemoglobin 29.8 pg (27.0-31.2); Mean Corpuscular Volume 91.7 fl (80-94); Platelet Count 242 K/mm3 (142-424); Red Blood Count 4.85 M/mm3 (4.60-6.20); Red Cell Distribution Width 14.2 % (11.5-17.5)
[2023-12-20 09:29] LABS: Albumin Level 4.1 g/dl (3.5-5.0); Anion Gap 14.7 mEq/L (5-15); Blood Urea Nitrogen 41 mg/dl (9-20); Calcium 9.3 mg/dl (8.4-10.2); Carbon Dioxide 24 mmol/L (22.0-30.0); Chloride 106 mmol/L (98-107); Estimated Glomerular Filt Rate 39 ml/min (>60); GFR (African American) 48 ML/MIN (>60); Glucose 104 mg/dl (74-100); Potassium 4.7 mmoL/L (3.5-5.1); Sodium 140 mmol/L (136-145)
[2023-12-20 09:57] LABS: Appearance,Urine CLEAR (Clear); Bilirubin,Urine Negative (Negative); Blood, Urine Negative (Negative); Color,Urine YELLOW (Yellow); Glucose,Urine (UA) Negative (Negative); Ketones,Urine Negative (Negative); Leukocyte Esterase,Urine Negative (Negative); Nitrate,Urine Negative (Negative); PH,Urine 5.5 (5.0-8.5); Protein,Urine 2+ (Negative); Urobilinogen,Urine 0.2 EU/dl (0.2)
[2023-12-20 10:07] LABS: Creatinine,Urine Random 144 mg/dL (Not Estab.)
[2023-12-20 10:55] LABS: Squamous Epithelial Cell,Urine Occasional #/hpf (0-5); WBC,Urine Occasional #/hpf (0-3)
[2023-12-20 10:56] LABS: Bacteria,Urine Trace /lpf; Fine Granular Casts,Urine Occasional #/lpf (0)
== END 2023-12-20 23:59 | disposition home or self-care (01) ==
PROVIDERS: PCP Internal Medicine Adolescent Medicine; Visit Provider Internal Medicine Nephrology
DX: N18.9 Chronic kidney disease, unspecified; R73.09 Other abnormal glucose; Z79.899 Other long term (current) drug therapy; N17.9 Acute kidney failure, unspecified
CPT/HCPCS: 36415; 80069; 81001; 82570; 84156; 85014; 85018; 85048; 85049

== ENCOUNTER 2023-12-24 13:06 | Outpatient (POV) | payer MEDICARE, SELFPAY | END 2023-12-24 23:59 | disposition home or self-care (01) | LOC: SC 13:07 | PROVIDERS: Visit Provider Internal Medicine Nephrology | DX: Z00.00 Encounter for general adult medical examination without abnormal findings (principal) ==

== ENCOUNTER 2024-04-07 07:18 | Outpatient (CLI) | payer MEDICARE, SELFPAY ==
[2024-04-07 07:27] LABS: Microscopic, Urine URINE MICROSCOPIC (MICROSCOPIC)
[2024-04-07 08:07] LABS: Hemoglobin 13.4 g/dL (14.1-18.0); Mean Corpuscular HGB Conc 31.1 g/dL (31.8-35.4); Mean Corpuscular Hemoglobin 28.6 pg (27.0-31.2); Mean Corpuscular Volume 92.1 fl (80-94); Platelet Count 300 K/mm3 (142-424); Red Blood Count 4.67 M/mm3 (4.60-6.20); Red Cell Distribution Width 13.7 % (11.5-17.5); White Blood Count 10.2 K/mm3 (4.8-10.8)
[2024-04-07 08:30] LABS: Albumin Level 3.7 g/dl (3.5-5.0); Anion Gap 8.3 mEq/L (5-15); Blood Urea Nitrogen 39 mg/dl (9-20); Calcium 9.1 mg/dl (8.4-10.2); Carbon Dioxide 26 mmol/L (22.0-30.0); Chloride 108 mmol/L (98-107); Estimated Glomerular Filt Rate 39 ml/min (>60); GFR (African American) 47 ML/MIN (>60); Glucose 101 mg/dl (74-100); Phosphorous 3.5 mg/dl (2.5-4.5); Potassium 5.3 mmoL/L (3.5-5.1); Sodium 137 mmol/L (136-145)
[2024-04-07 08:31] LABS: Appearance,Urine CLEAR (Clear); Bilirubin,Urine Negative (Negative); Blood, Urine Negative (Negative); Color,Urine YELLOW (Yellow); Glucose,Urine (UA) Negative (Negative); Ketones,Urine Negative (Negative); Leukocyte Esterase,Urine Negative (Negative); Nitrate,Urine Negative (Negative); Protein,Urine 2+ (Negative); Urobilinogen,Urine 0.2 EU/dl (0.2)
[2024-04-07 08:44] LABS: Creatinine,Urine Random 138 mg/dL (Not Estab.)
[2024-04-07 08:48] LABS: Transitional Epi Cells,Urine OCC #/lpf (0-3); WBC,Urine Occasional #/hpf (0-3)
== END 2024-04-07 23:59 | disposition home or self-care (01) ==
LOC: LAB 07:20
PROVIDERS: PCP Internal Medicine Adolescent Medicine; Visit Provider Internal Medicine Nephrology
DX: N18.30 Chronic kidney disease, stage 3 unspecified (principal)
CPT/HCPCS: 36415; 80069; 81001; 82570; 84156; 85027

== ENCOUNTER 2024-04-10 14:12 | Outpatient (POV) | payer MEDICARE, SELFPAY | END 2024-04-10 23:59 | disposition home or self-care (01) | LOC: SC 14:16 | PROVIDERS: Visit Provider Student in an Organized Health Care Education/Training Program | DX: Z00.00 Encounter for general adult medical examination without abnormal findings (principal) ==

== ENCOUNTER 2024-05-21 07:31 | Outpatient (CLI) | payer MEDICARE, SELFPAY ==
--- NOTE | 2024-05-21 07:36 | CA_ITS ---
APPROVED REPORT EXAM: Comprehensive 2D, Doppler, and color-flow Echocardiogram Inside Outside Sales Representative: Sharon Dinh RDCS Ht: 5 ft 8 in Wt: 169lbs BSA: 1.90 BP: 149/64 mmHg Indications: MURMUR,HTN,PAD M-Mode Dimensions RVDd 2.25 cm (0.9-2.6) LA Diam 3.55 cm (1.9-4.0) LVDd 4.82 cm (3.5-5.7) LVDs 3.21 cm (3.5-5.7) IVSd 1.32 cm (0.6-1.1) PWd 0.89 cm (0.6-1.1) EF (Teich) 62.00% FS 33.40% EDV (Teich) 108.60 mL TAPSE 2.56 (<1.7) ESV (Teich) 41.30 mL LV Diastology E Decel Time 232 (160-240 msec) E/A Ratio 1.0 Aortic Valve HUNTER Index 1.00 cm2/m2 AoV Peak Robson. 138.0 (50-130 cm/s) AI PHT 624.00 ms AO Peak GR. 7.60 mmHg AO Mean GR. 3.80 (<5 mmHg) AO VTI 32.9 (18-25 cm) HUNTER (VTI) 1.95 (2.5-4.5 cm2) Mitral Valve MV E Max Robson. 91.0 (40-130 cm/s) MV A Velocity 91.0 (40-130 cm/s) E/A Ratio 1.01 MV PHT 68.0 ms Tricuspid Valve TR P. Velocity 299.00 cm/s RAP Estimate 10.00 mmHg RVSP 45.60 mmHg Left Ventricle The left ventricle is normal size. The left ventricular systolic function is normal. The left ventricular ejection fraction is within the normal range. There is increased LV wall thickness. There is normal LV segmental wall motion. Transmitral Doppler flow pattern suggests impaired LV relaxation. LVEF is 55%. Right Ventricle Right ventricle is mildly dilated. The right ventricular systolic function is normal. Atria Left atrium is mildly dilated. Right atrium is mildly dilated. There is no Doppler evidence of interatrial shunt. Aortic Valve The aortic valve is mildly thickened. There is no aortic valvular stenosis. Mild aortic regurgitation. Mitral Valve The mitral valve leaflets are mildly thickened. No evidence of mitral valve stenosis. Trace mitral regurgitation. Tricuspid Valve Tricuspid valve is grossly normal in structure and function. Mild tricuspid regurgitation. RVSP is 30-35 mmHg. Pulmonic Valve The pulmonary valve is normal in structure. Trace pulmonic regurgitation. Great Vessels The aortic root is normal in size. The ascending aorta is not well-visualized. IVC is normal in size and collapses >50% with inspiration. Pericardium There is no pericardial effusion. Other Information Study Quality: Fair Conclusion Normal biventricular systolic function. Mild biatrial dilation. Mild AI, mild TR. RVSP 30-35 mmHg. Electronically signed by : Angella Sparrow MD 05/26/2024 01:31:13
[2024-05-21 09:31] LABS: Albumin Level 3.6 g/dl (3.5-5.0)
[2024-05-21 09:34] LABS: Alanine Aminotransferase 15 U/L (12-78); Alkaline Phosphatase 79 U/L (38-126); Aspartate Amino Transferase 22 U/L (17-59); Bilirubin,Direct 0.1 mg/dl (0.0-0.4); Bilirubin,Indirect 0.3 mg/dL (0.0-0.9); Bilirubin,Total 0.4 mg/dl (0.2-1.3); Bilirubin,Unconjugated 0.3 mg/dL (0.0-1.1); Chol/HDL Ratio 3.8 (1-3.5); Cholesterol 118 mg/dl (140-200); HDL Cholesterol 31 mg/dl (40-60); Triglycerides 114 mg/dl (30-150); VLDL Cholesterol 23 mg/dL (0-40)
[2024-05-21 09:46] LABS: Direct LDL Cholesterol 60.83 mg/dL (100-129)
== END 2024-05-21 23:59 | disposition home or self-care (01) ==
LOC: RT 07:33
PROVIDERS: PCP Internal Medicine Adolescent Medicine; Visit Provider Physician Assistant
DX: I51.7 Cardiomegaly (principal); R01.1 Cardiac murmur, unspecified; I70.1 Atherosclerosis of renal artery; R00.1 Bradycardia, unspecified; I65.23 Occlusion and stenosis of bilateral carotid arteries; E78.2 Mixed hyperlipidemia; I25.10 Atherosclerotic heart disease of native coronary artery without angina pectoris; I73.9 Peripheral vascular disease, unspecified; E78.5 Hyperlipidemia, unspecified
CPT/HCPCS: 36415; 80061; 80076; 93306

== ENCOUNTER 2024-06-03 09:03 | Outpatient (CLI) | payer MEDICARE, SELFPAY ==
--- NOTE | 2024-06-03 09:04 | CT_ITS ---
FINAL REPORT TECHNIQUE: Axial CT images were performed from the lung apices through the upper abdomen. Coronal reformats were submitted. This study was performed with techniques to keep radiation doses as low as reasonably achievable (ALARA). Individualized dose reduction techniques using automated exposure control or adjustment of mA and/or kV according to the patient's size were employed. CLINICAL HISTORY: Tobacco use screening, previous nodules noted COMPARISON: 01/04/2023 FINDINGS: There is no axillary adenopathy. There are small mediastinal nodes. Heart size is normal. There is no pericardial or pleural effusion. Multiple bilateral pulmonary nodules appear worse. Nodule in the posterior right upper lobe measures 8 mm, previously measured 5 mm. This is well-seen on series 2, image 18. Left upper lobe mass measures 9 mm, previously measured 6 mm. Multiple other pulmonary nodules are larger. Limited images of the upper abdomen demonstrate cholecystectomy. Calcified splenic mass is again identified. There is a right renal artery stent. IMPRESSION: Worsening pulmonary nodules, may be infectious/inflammatory including mycobacterial/fungal diseases although neoplasm is not entirely excluded. Stable, nonspecific splenic mass. Reviewed, Interpreted and Dictated by Raymond Barrera III, MD Transcribed by Susan Valverde Authenticated and [facility] [place]
== END 2024-06-03 23:59 | disposition home or self-care (01) ==
LOC: RAD 09:04
PROVIDERS: PCP Internal Medicine; Visit Provider Internal Medicine
DX: R91.1 Solitary pulmonary nodule (principal); Z87.891 Personal history of nicotine dependence
CPT/HCPCS: 71250

== ENCOUNTER 2024-08-14 13:09 | Outpatient (CLI) | payer MEDICARE, SELFPAY ==
[2024-08-14 14:43] LABS: C-Reactive Protein 0.8 mg/L (0-4)
[2024-08-15 14:04] LABS: Antinuclear Antibodies (ANA) Negative (Negative)
[2024-08-16 17:35] LABS: QuantiFERON-TB Gold Plus Negative (Negative)
[2024-08-17 13:11] LABS: Aspergillus flavus Negative (Neg:<1:1); Aspergillus fumigatus Negative (Neg:<1:1); Aspergillus niger Negative (Neg:<1:1); Blastomyces Antibody Negative (Neg:<1:1); Histoplasma Antibody Quant Negative (Neg:<1:1)
== END 2024-08-14 23:59 | disposition home or self-care (01) ==
LOC: LAB 13:10
PROVIDERS: PCP Internal Medicine; Visit Provider Internal Medicine Pulmonary Disease
DX: J84.9 Interstitial pulmonary disease, unspecified (principal); J84.10 Pulmonary fibrosis, unspecified; R91.1 Solitary pulmonary nodule; R06.09 Other forms of dyspnea
CPT/HCPCS: 36415; 86038; 86140; 86480; 86606; 86612; 86698

== ENCOUNTER 2024-08-15 10:32 | Outpatient (CLI) | payer MEDICARE, SELFPAY | END 2024-08-15 23:59 | disposition home or self-care (01) | LOC: LAB 10:32 | PROVIDERS: PCP Internal Medicine; Visit Provider Internal Medicine Pulmonary Disease | DX: R91.1 Solitary pulmonary nodule (principal); J18.9 Pneumonia, unspecified organism | CPT/HCPCS: 87070; 87077; 87116; 87186; 87205; 87206; 87220 ==

== ENCOUNTER 2024-08-18 08:13 | Outpatient (CLI) | payer MEDICARE, SELFPAY | END 2024-08-18 23:59 | disposition home or self-care (01) | PROVIDERS: PCP Internal Medicine; Visit Provider Internal Medicine Pulmonary Disease | DX: R91.1 Solitary pulmonary nodule (principal) | CPT/HCPCS: 87070; 87077; 87116; 87186; 87205; 87206 ==

== ENCOUNTER 2024-08-19 10:25 | Outpatient (CLI) | payer MEDICARE, SELFPAY | END 2024-08-19 23:59 | disposition home or self-care (01) | LOC: LAB 10:26 | PROVIDERS: PCP Internal Medicine; Visit Provider Internal Medicine Pulmonary Disease | DX: R91.1 Solitary pulmonary nodule (principal) | CPT/HCPCS: 87070; 87077; 87116; 87186; 87205; 87206 ==

== ENCOUNTER 2024-09-09 07:27 | Outpatient (CLI) | payer MEDICARE, SELFPAY ==
[2024-09-09 07:35] LABS: Microscopic, Urine URINE MICROSCOPIC (MICROSCOPIC)
[2024-09-09 08:01] LABS: Hematocrit 42.7 % (42.0-52.0); Hemoglobin 13.8 g/dL (14.1-18.0); Mean Corpuscular HGB Conc 32.3 g/dL (31.8-35.4); Mean Corpuscular Hemoglobin 28.2 pg (27.0-31.2); Mean Corpuscular Volume 87.3 fl (80-94); Platelet Count 217 K/mm3 (142-424); Red Blood Count 4.89 M/mm3 (4.60-6.20); Red Cell Distribution Width 13.3 % (11.5-17.5); White Blood Count 9.7 K/mm3 (4.8-10.8)
[2024-09-09 08:32] LABS: Albumin Level 3.7 g/dl (3.5-5.0); Anion Gap 6.9 mEq/L (5-15); Blood Urea Nitrogen 34 mg/dl (9-20); Carbon Dioxide 27 mmol/L (22.0-30.0); Chloride 108 mmol/L (98-107); Estimated Glomerular Filt Rate 49 ml/min (>60); GFR (African American) 59 ML/MIN (>60); Glucose 101 mg/dl (74-100); Phosphorous 3.6 mg/dl (2.5-4.5); Potassium 4.9 mmoL/L (3.5-5.1); Sodium 137 mmol/L (136-145)
[2024-09-09 08:44] LABS: Intact Parathyroid Hormone 68.4 pg/mL (7.5-53.5)
[2024-09-09 08:50] LABS: 25-OH Vitamin D, Total 41.4 ng/mL (30-100)
[2024-09-09 09:23] LABS: Appearance,Urine CLEAR (Clear); Bilirubin,Urine Negative (Negative); Blood, Urine Negative (Negative); Color,Urine YELLOW (Yellow); Glucose,Urine (UA) Negative (Negative); Ketones,Urine Negative (Negative); Leukocyte Esterase,Urine Negative (Negative); Nitrate,Urine Negative (Negative); PH,Urine 6.5 (5.0-8.5); Protein,Urine 2+ (Negative); Specific Gravity, Urine 1.025 (1.005-1.030); Urobilinogen,Urine 0.2 EU/dl (0.2)
[2024-09-09 09:51] LABS: Creatinine,Urine Random 74 mg/dL (Not Estab.)
[2024-09-09 10:37] LABS: Bacteria,Urine 1+ /lpf; Squamous Epithelial Cell,Urine Occasional #/hpf (0-5); WBC,Urine Occasional #/hpf (0-3)
[2024-09-10 03:41] LABS: Complement C3 126 mg/dL (82-167)
[2024-09-10 14:11] LABS: Complement, Total (CH50) >60 U/mL (>41)
[2024-09-10 15:11] LABS: Albumin 3.4 g/dL (2.9-4.4); Alpha-1-Globulin 0.2 g/dL (0.0-0.4); Alpha-2-Globulin 0.7 g/dL (0.4-1.0); Free Kappa Lt Chains 48.7 mg/L (3.3-19.4); Free Lambda Lt Chains 22.2 mg/L (5.7-26.3); Gamma Globulin 0.9 g/dL (0.4-1.8); Protein, Total 6.2 g/dL (6.0-8.5)
[2024-09-11 16:12] LABS: Albumin, U 69.6 % (.); Alpha-1-Globulin, U 6.1 % (.); Alpha-2-Globulin, U 4.6 % (.); Beta Globulin, U 11.6 % (.); Gamma Globulin, U 8.1 % (.); M-Spike, % Not Observed % (Not Observed); Protein,Total,Urine 149.3 mg/dL (Not Estab.)
[2024-09-12 10:32] LABS: PDF SCANNED IMAGE
[2024-09-12 10:38] LABS: PDF: SCANNED IMAGE
== END 2024-09-09 23:59 | disposition home or self-care (01) ==
LOC: LAB 07:28
PROVIDERS: PCP Internal Medicine; Visit Provider Student in an Organized Health Care Education/Training Program
DX: N18.32 Chronic kidney disease, stage 3b (principal); R80.1 Persistent proteinuria, unspecified
CPT/HCPCS: 36415; 80069; 81001; 82043; 82306; 82570; 83883; 83970; 84155; 84156; 84165; 84166; 85027; 86161; 86162

== ENCOUNTER 2024-11-03 06:39 | Outpatient (CLI) | payer MEDICARE, SELFPAY ==
--- NOTE | 2024-11-03 07:00 | CT_ITS ---
FINAL REPORT TECHNIQUE: Axial images were obtained from the lung apex to the mid abdomen by computed tomography. Coronal and sagittal reformatted images were obtained. This study was performed with techniques to keep radiation doses as low as reasonably achievable, (ALARA). Individualized dose reduction techniques using automated exposure control or adjustment of mA and/or kV according to the patient's size were employed. CLINICAL HISTORY: Atypical pneumonia/multiple pulmonary nodules COMPARISON: 06/03/2024 FINDINGS: The heart size is normal. There is no pericardial or pleural effusion. There are multitude of bilateral pulmonary nodules again noted. Focus in the posterior right upper lobe measuring 8 mm on image 21 and series 2 is stable. Other nodules appear officially stable without new nodules identified. There is a 9 mm focus in the left upper lobe on image 21 of series 2 which is also stable. Limited images of the upper abdomen demonstrate a densely calcified mass in the spleen measuring up to 3.2 cm, stable from the previous exam. Again noted is a right renal artery stent in place. IMPRESSION: Bilateral pulmonary nodules which had increased since December 2023 are now stable in size. Given stability, these are felt to be likely benign and postinflammatory. 1 year follow-up recommended. Reviewed, Interpreted and Dictated by Celio Huang MD Transcribed by Mariana Voss Authenticated and [facility]
== END 2024-11-03 23:59 | disposition home or self-care (01) ==
LOC: RAD 06:40
PROVIDERS: PCP Internal Medicine; Visit Provider Internal Medicine Pulmonary Disease
DX: R91.8 Other nonspecific abnormal finding of lung field (principal)
CPT/HCPCS: 71250